=== PATIENT | male | born 1960 | race African-American/Black ===

== ENCOUNTER 2017-02-08 10:11 | Inpatient (IN) | payer OTHER ==
[2017-02-08 11:41] VITALS: BMI 25.0
--- NOTE | 2017-02-08 14:32 | HP ---
CIWA Score - CIWA Score Nausea/Vomitin-No Nausea/No Vomiting Muscle Tremors: 4-Moderate,w/Arms Extend Anxiety: 4-Mod. Anxious/Guarded Agitation: 4-Moderately Restless Paroxysmal Sweats: 3 Orientation: 0-Oriented Tacttile Disturbances: 0-None Auditory Disturbances: 0-None Visual Disturbances: 0-None Headache: 0-None Present CIWA-Ar Total Score: 15 Admission ROS BHS - HPI Chief Complaint: I am here to detox off the alcohol. Allergies/Adverse Reactions: Allergies Allergy/AdvReac Type Severity Reaction Status Date / Time No Known Drug Allergies Allergy Verified 02/08/17 11:56 honey AdvReac Mild Itching Verified 02/08/17 11:56 History of Present Illness: pt is a 57yr old male with a history of alcohol dependence seeking detox for treatment. pt is also on a mmtp [place] mmtp, recieved 140mg, last dosed today. dose was verified. Exam Limitations: No Limitations - Ebola screening Have you traveled outside of the country in the last 21 days: No Have you had contact with anyone from an Ebola affected area: No Have you been sick,other than usual withdrawal symptoms: No Do you have a fever: No - Review of Systems Constitutional: Chills, Diaphoresis, Changes in sleep EENT: reports: No Symptoms Reported Respiratory: reports: No Symptoms reported Cardiac: reports: No Symptoms Reported GI: reports: Poor Appetite, Poor Fluid Intake : reports: No Symptoms Reported Musculoskeletal: reports: Back Pain Integumentary: reports: Flushing, Sweating Neuro: reports: Headache, Tremors Endocrine: reports: Excessive Sweating, Flushing, Intolerance to Cold, Intolerance to Heat Hematology: reports: No Symptoms Reported Psychiatric: reports: Judgement Intact, Mood/Affect Appropiate, Orientated x3, Agitated, Anxious Other Systems: Reviewed and Negative Patient History - Patient Medical History Hx Anemia: No Hx Asthma: No Hx Chronic Obstructive Pulmonary Disease (COPD): No Hx Cancer: No Hx Cardiac Disorders: No Hx Congestive Heart Failure: No Hx Hypertension: No Hx Hypercholesterolemia: No Hx Pacemaker: No HX Cerebrovascular Accident: No Hx Seizures: No Hx Dementia: No Hx Diabetes: No Hx Gastrointestinal Disorders: No Hx Liver Disease: No Hx Genitourinary Disorders: No Hx Sexually Transmitted Disorders: No Hx Renal Disease (ESRD): No Hx Thyroid Disease: No Hx Human Immunodeficiency Virus (HIV): No (LAST 2015 NEGATIVE) Hx Hepatitis C: No (LAST TESTED: 2014: NEGATIVE.) Hx Depression: Yes Hx Suicide Attempt: No Hx Bipolar Disorder: No Hx Schizophrenia: No - Patient Surgical History Past Surgical History: Yes Hx Neurologic Surgery: No Hx Cataract Extraction: No Hx Cardiac Surgery: No Hx Lung Surgery: No Hx Breast Surgery: No Hx Breast Biopsy: No Hx Abdominal Surgery: Yes (UMBILICAL HERNIA REPAIR 10 YRS. AGO) Hx Appendectomy: No Hx Cholecystectomy: No Hx Genitourinary Surgery: No Hx Section: No Hx Orthopedic Surgery: No Anesthesia Reaction: No - PPD History Previous Implant?: Yes Documented Results: Negative w/o proof Implanted On Prior R Admission?: Yes PPD to be Administered?: Yes - Reproductive History Patient is a Female of Child Bearing Age (11 -55 yrs old): No - Smoking Cessation Smoking history: Current every day smoker Have you smoked in the past 12 months: Yes Aproximately how many cigarettes per day: 3 Cigars Per Day: 0 Hx Chewing Tobacco Use: No Initiated information on smoking cessation: Yes 'Breaking Loose' booklet given: 02/08/17 - Substance & Tx. History Hx Alcohol Use: Yes Hx Substance Use: No Substance Use Type: Alcohol Hx Substance Use Treatment: Yes (last detox 11/2015) - Substances Abused Alcohol-sera Route: Oral Frequency: Daily Amount used: 1 pt. Age of first use: 19 Date of Last Use: 02/08/17 Family Disease History - Family Disease History Family Disease History: Diabetes: Grandparent, Father (HTN; Prostate disorder.) , Mother (HTN), Brother, Heart Disease: Father, Mother, Other: Father, Sister ( Uterine fibroids.) Admission Physical Exam S - Vital Signs Vital Signs: Vital Signs - 24 hr 02/08/17 11:39 Temperature 98.1 F Pulse Rate 115 H Respiratory 20 Rate Blood Pressure 128/78 - Physical General Appearance: Yes: Appropriately Dressed, Moderate Distress, Tremorous, Irritable, Sweating, Anxious HEENTM: Yes: Hearing grossly Normal, Normal Voice Respiratory: Yes: Lungs Clear, Normal Breath Sounds, No Respiratory Distress Neck: Yes: No masses,lesions,Nodules Breast: Yes: Within Normal Limits Cardiology: Yes: Regular Rhythm, Regular Rate, S1, S2 Abdominal: Yes: Normal Bowel Sounds, Non Tender, Soft Genitourinary: Yes: Within Normal Limits Back: Yes: Normal Inspection Musculoskeletal: Yes: full range of Motion, Back pain Extremities: Yes: Normal Capillary Refill, Normal Inspection, Non-Tender, Tremors Neurological: Yes: Fully Oriented, Alert, Normal Response Integumentary: Yes: Normal Color, Diaphoresis Lymphatic: Yes: Within Normal Limits - Diagnostic (1) Alcohol dependence with uncomplicated withdrawal Current Visit: Yes Status: Chronic (2) HTN (hypertension) Current Visit: Yes Status: Chronic Qualifiers: Hypertension type: essential hypertension (3) Methadone maintenance therapy patient Current Visit: Yes Status: Chronic Comment: dose has been verified. (4) Nicotine dependence Current Visit: No Status: Chronic Qualifiers: Nicotine product type: cigarettes Substance use status: uncomplicated Qualified Code(s): F17.210 - Nicotine dependence, cigarettes, uncomplicated Cleared for Admission [facility] - Detox or Rehab [facility] Level of Care: Medically Managed Detox Regimen/Protocol: Librium [facility] Breath Alcohol Content Breath Alcohol Content: 0.120 Urine Drug Screen - Results Drug Screen Negative: No Urine Drug Screen Results: MTD-Methadone, TCA-Tricyclic Antidepress
[2017-02-08] MEDS ORDERED: P-EPHED 60MG/TRIPROLIDI 2.5MG TABLET PO PRN (14:33)
[2017-02-08] MEDS ORDERED: ACETAMINOPHEN 325 MG TABLET (FP) PO PRN (14:33)
[2017-02-08] MEDS ORDERED: chlordiazePOXIDE HCL 25 MG CAPSULE PO PRN (14:33)
[2017-02-08] MEDS ORDERED: guaiFENesin/D-METHORPHAN HB 10 ML UNIT-DOSE CUPS PO PRN (14:33)
[2017-02-08] MEDS ORDERED: MENTHOL/PHENOL 1 EACH UD MM PRN (14:33)
[2017-02-08] MEDS ORDERED: IBUPROFEN 400 MG TABLET (FP) PO PRN (14:33)
[2017-02-08] MEDS ORDERED: LOPERAMIDE HCL 2 MG CAPSULE PO PRN (14:33)
[2017-02-08] MEDS ORDERED: MAG HYDROX/AL HYDROX/SIMETH 30 ML UNIT-DOSE CUP PO PRN (14:33)
[2017-02-08] MEDS ORDERED: MAGNESIUM HYDROX 2400MG/30ML ORAL SUSPENSION 30 ML CUP PO PRN (14:33)
[2017-02-08] MEDS ORDERED: NICOTINE POLACRILEX 2 MG GUM BUC PRN (14:33)
[2017-02-08] MEDS ORDERED: MAGNESIUM CITRATE 300 ML BOTTLE PO PRN (14:33)
[2017-02-08] MEDS ORDERED: chlordiazePOXIDE HCL 25 MG CAPSULE PO ONE (15:04)
[2017-02-08] MEDS: hydrOXYzine PAMOATE 50 MG CAPSULE (FP) PO PRN ×2 (16:16→22:12)
--- NOTE | 2017-02-08 16:38 | PN ---
BHS Progress Note Note: RECEIVED NURSE CALL THAT THE PATIENT HAS BP 159/98 STRONG RECOMMEND INITIATING LIBRIUM DETOX TREATMENT IMMEDIATELY REPEAT BP TWO HOURS AFTER LIBRIUM ADMINISTRATION
[2017-02-08] MEDS: chlordiazePOXIDE HCL 25 MG CAPSULE PO SCH ×2 (17:31→22:12)
[2017-02-08] MEDS: THIAMINE HCL 100 MG TABLET (FP) PO SCH (22:12)
[2017-02-08 22:15] LABS: URINE APPEARANCE CLEAR; URINE BILIRUBIN NEGATIVE (NEGATIVE); URINE BLOOD NEGATIVE (NEGATIVE); URINE COLOR STRAW; URINE GLUCOSE (UA) NEGATIVE (NEGATIVE); URINE KETONE NEGATIVE (NEGATIVE); URINE NITRITE NEGATIVE (NEGATIVE); URINE PROTEIN NEGATIVE (NEGATIVE); URINE UROBILINOGEN NEGATIVE mg/dL (0.2-1.0)
[2017-02-09] MEDS ORDERED: METHADONE HCL 40 MG DISPERSABLE TABLET ONE (04:46)
[2017-02-09] MEDS ORDERED: METHADONE HCL 10 MG TABLET ONE (04:47)
[2017-02-09] MEDS: METHADONE 120 MG, METHADONE 20 MG PO SCH (05:08)
[2017-02-09] MEDS ORDERED: METHADONE HCL PO SCH (06:00)
[2017-02-09] MEDS: chlordiazePOXIDE HCL 25 MG CAPSULE PO SCH ×4 (06:09→22:29)
[2017-02-09 09:48] LABS: MCH 29.4 pg (25.7-33.7); MCHC 33.7 g/dl (32.0-35.9); MEAN CELL VOLUME 87.3 fl (80-96); MEAN PLT VOLUME 9.4 fl (7.5-11.1); PLATELET COUNT 84 K/MM3 (134-434); RDW 14.7 % (11.9-15.9); WHITE BLOOD COUNT 5.3 K/mm3 (4.0-10.0)
--- NOTE | 2017-02-09 10:01 | PN ---
S CIWA - CIWA Score Nausea/Vomitin-No Nausea/No Vomiting Muscle Tremors: 4-Moderate,w/Arms Extend Anxiety: 3 Agitation: 3 Paroxysmal Sweats: 3 Orientation: 0-Oriented Tacttile Disturbances: 0-None Auditory Disturbances: 0-None Visual Disturbances: 0-None Headache: 1-Very Mild CIWA-Ar Total Score: 14 S Progress Note (SOAP) Subjective: sweats shakes interrupted sleep body aches i need ensure Objective: 02/09/17 10:01 Vital Signs Temperature 97.0 F L 02/09/17 06:00 Pulse Rate 72 02/09/17 06:00 Respiratory Rate 18 02/09/17 06:00 Blood Pressure 142/96 02/09/17 06:00 O2 Sat by Pulse Oximetry (%) Laboratory Tests 02/08/17 02/09/17 21:50 06:05 WBC 5.3 RBC 4.26 Hgb 12.5 Hct 37.2 MCV 87.3 MCH 29.4 MCHC 33.7 RDW 14.7 Plt Count 84 L MPV 9.4 Urine Color Straw Urine Appearance Clear Urine pH 6.0 Ur Specific [employer] [employer] 1.004 Urine Protein Negative Urine Glucose (UA) Negative Urine Ketones Negative Urine Blood Negative Urine Nitrite Negative Urine Bilirubin Negative Urine Urobilinogen Negative labs pending [id number] ambulating no acute distress Assessment: 02/09/17 10:01 withdrawal sx Plan: continue detox increase fluids ensure bid labs pending
[2017-02-09] MEDS: amLODIPine BESYLATE 10 MG TABLET (FP) PO SCH (10:16)
[2017-02-09] MEDS: PRENATAL VITAMINS W/ FOLIC ACID TABLET (FP) PO SCH (10:16)
[2017-02-09] MEDS: NICOTINE 7 MG/24 HOURS TOPICAL PATCH TD SCH (10:18)
[2017-02-09 11:09] LABS: ALBUMIN 3.8 g/dl (3.4-5.0); ANION GAP 9 (8-16); CALCIUM 7.9 mg/dL (8.5-10.1); CO2 26 mmol/L (21-32); GLUCOSE,RANDOM 111 mg/dL (74-106)
[2017-02-09 11:13] LABS: ALK PHOS 98 U/L (45-117); BILIRUBIN,TOTAL 0.5 mg/dL (0.2-1.0); SGOT/AST 27 U/L (15-37); SGPT/ALT 39 U/L (12-78); TOT PROT 7.1 g/dl (6.4-8.2)
[2017-02-09 11:28] LABS: URINE LEUK ESTERASE Negative (NEGATIVE)
--- NOTE | 2017-02-09 12:00 | EKG ---
Test Reason : Blood Pressure : / mmHG Vent. Rate : 119 BPM Atrial Rate : 119 BPM P-R Int : 178 ms QRS Dur : 082 ms QT Int : 306 ms P-R-T Axes : 084 075 045 degrees QTc Int : 430 ms SINUS TACHYCARDIA BIATRIAL ENLARGEMENT LEFT VENTRICULAR HYPERTROPHY NONSPECIFIC ST ABNORMALITY NO PREVIOUS ECGS AVAILABLE Confirmed by LEELEE RODRIGUEZ, AMARI ([id number]) on 02/09/2017 11:59:53 AM Referred By: MARCELINA GUTIERREZ Confirmed By:AMARI MCKOY MD
[2017-02-09] MEDS: CARBAMIDE PEROXIDE 6.5% OTIC 15 ML BOTTLE AU SCH ×2 (13:36→22:30)
--- NOTE | 2017-02-09 16:24 | CONSULT ---
[facility] Psychiatric Consult - Data Date of interview: 02/09/17 Admission source: [facility] Identifying data: One of multiple admissions to [facility] for this 57 y/o AA male seeking detox treatment on for alcohol dependence.Patient is single ,a father of one,domiciled,unemployed and supported on [facility] benefits. Substance Abuse History: Mr Fraire admits to active use of alcohol.Smoking history: Current every day smoker. Have you smoked in the past 12 months: Yes. Aproximately how many cigarettes per day: 3. Cigars Per Day: 0. Hx Chewing Tobacco Use: No. Initiated information on smoking cessation: Yes. 'Breaking Loose' booklet given: 02/08/17. - Substance & Tx. History. Hx Alcohol Use: Yes. Hx Substance Use: No. Substance Use Type: Alcohol. Hx Substance Use Treatment: Yes (last detox 11/2015). - Substances Abused. Alcohol-sera. Route: Oral. Frequency: Daily. Amount used: 1 pt. Age of first use: 19. Date of Last Use: 02/08/17 Medical History: Hypertension,pancreatitis and past history of umbilical herniorraphy. Psychiatric History: No reported history of previous psychiatric hospitalizations.Mr Fraire is currrently on methadone maintenance (140 mg/day) at the [facility] MMTP program.Sees a psychiatrist at the [facility] in [place], [place] for medication management : zoloft 50 mg/day + seroquel 200 mg/day (50 mg po 150 mg po hs).Diagnosed with MDD.Patient denies history of suicide attempts. Physical/Sexual Abuse/Trauma History: Patient denies denies history of abuse. Additional Comment: Urine Drug Screen Results: MTD-Methadone, TCA-Tricyclic Antidepressant.Noted. Mental Status Exam - Mental Status Exam Alert and Oriented to: Time, Place, Person Cognitive Function: Good Patient Appearance: Well Groomed Mood: Hopeful, Euthymic Affect: Appropriate, Normal Range Patient Behavior: Appropriate, Cooperative Speech Pattern: Clear Voice Loudness: Normal Thought Process: Intact, Goal Oriented Thought Disorder: Not Present Hallucinations: Denies Suicidal Ideation: Denies Homicidal Ideation: Denies Insight/Judgement: Poor Sleep: Poorly, Difficulty falling asleep Appetite: Good Muscle strength/Tone: Normal Gait/Station: Normal Psychiatric Findings - Problem List ([place] 1, 2,3) (1) Alcohol dependence with uncomplicated withdrawal Current Visit: Yes Status: Acute (2) Opioid dependence on agonist therapy Current Visit: Yes Status: Acute (3) Nicotine dependence Current Visit: Yes Status: Acute Qualifiers: Nicotine product type: cigarettes Substance use status: uncomplicated Qualified Code(s): F17.210 - Nicotine dependence, cigarettes, uncomplicated (4) Substance induced mood disorder Current Visit: Yes Status: Acute (5) MDD (major depressive disorder) Current Visit: Yes Status: Chronic (6) Insomnia Current Visit: Yes Status: Acute - Initial Treatment Plan Initial Treatment Plan: Psychoeducation.Sleep hygiene.Detoxification in progress.Medications : seroquel 50 mg po am/150 mg po hs + zoloft 50 mg po daily.Side effecst/benefits discussed with the patient.He agrees with this careplan.Observation.
[2017-02-09] MEDS: QUEtiapine FUMARATE 50 MG TABLET PO SCH ×2 (17:13→22:29)
[2017-02-09] MEDS: THIAMINE HCL 100 MG TABLET (FP) PO SCH (22:29)
[2017-02-10] MEDS: hydrOXYzine PAMOATE 50 MG CAPSULE (FP) PO PRN (00:25)
[2017-02-10] MEDS ORDERED: METHADONE HCL 10 MG TABLET ONE (04:41)
[2017-02-10] MEDS ORDERED: METHADONE HCL 40 MG DISPERSABLE TABLET ONE (04:41)
[2017-02-10] MEDS: METHADONE 120 MG, METHADONE 20 MG PO SCH (05:10)
[2017-02-10] MEDS: chlordiazePOXIDE HCL 25 MG CAPSULE PO SCH ×2 (05:10→10:13)
[2017-02-10] MEDS: CARBAMIDE PEROXIDE 6.5% OTIC 15 ML BOTTLE AU SCH ×2 (10:12→22:11)
[2017-02-10] MEDS: amLODIPine BESYLATE 10 MG TABLET (FP) PO SCH (10:13)
[2017-02-10] MEDS: QUEtiapine FUMARATE 50 MG TABLET PO SCH ×2 (10:13→22:11)
[2017-02-10] MEDS: PRENATAL VITAMINS W/ FOLIC ACID TABLET (FP) PO SCH (10:13)
[2017-02-10] MEDS: NICOTINE 7 MG/24 HOURS TOPICAL PATCH TD SCH (10:14)
[2017-02-10] MEDS: SERTRALINE HCL 50 MG TABLET (FP) PO SCH (10:14)
--- NOTE | 2017-02-10 13:28 | PN ---
S CIWA - CIWA Score Nausea/Vomitin Muscle Tremors: 3 Anxiety: 3 Agitation: 3 Paroxysmal Sweats: 1-Minimal Palms Moist Orientation: 0-Oriented Tacttile Disturbances: 1-Very Mild Itch/Numbness Auditory Disturbances: 1-Very Mild Visual Disturbances: 0-None Headache: 2-Mild CIWA-Ar Total Score: 17 BHS Progress Note (SOAP) Subjective: alert,irritable,anxious,interrupted sleep,tremor Objective: 02/10/17 13:26 Vital Signs Temperature 96.9 F L 02/10/17 10:33 Pulse Rate 89 02/10/17 10:33 Respiratory Rate 20 02/10/17 10:33 Blood Pressure 128/78 02/10/17 10:33 O2 Sat by Pulse Oximetry (%) Laboratory Last Values WBC 5.3 K/mm3 (4.0-10.0) 02/09/17 06:05 RBC 4.26 M/mm3 (4.00-5.60) 02/09/17 06:05 Hgb 12.5 GM/dL (11.7-16.9) 02/09/17 06:05 Hct 37.2 % (35.4-49) 02/09/17 06:05 MCV 87.3 fl (80-96) 02/09/17 06:05 MCH 29.4 pg (25.7-33.7) 02/09/17 06:05 MCHC 33.7 g/dl (32.0-35.9) 02/09/17 06:05 RDW 14.7 % (11.9-15.9) 02/09/17 06:05 Plt Count 84 K/MM3 (134-434) L 02/09/17 06:05 MPV 9.4 fl (7.5-11.1) 02/09/17 06:05 Sodium 141 mmol/L (136-145) 02/09/17 06:05 Potassium 4.2 mmol/L (3.5-5.1) 02/09/17 06:05 Chloride 106 mmol/L (98-107) 02/09/17 06:05 Carbon Dioxide 26 mmol/L (21-32) 02/09/17 06:05 Anion Gap 9 (8-16) 02/09/17 06:05 BUN 11 mg/dL (7-18) D 02/09/17 06:05 Creatinine 1.0 mg/dL (0.7-1.3) 02/09/17 06:05 Creat Clearance w eGFR > 60 (>60) 02/09/17 06:05 Random Glucose 111 mg/dL (74-106) H 02/09/17 06:05 Calcium 7.9 mg/dL (8.5-10.1) L 02/09/17 06:05 Total Bilirubin 0.5 mg/dL (0.2-1.0) D 02/09/17 06:05 AST 27 U/L (15-37) 02/09/17 06:05 ALT 39 U/L (12-78) 02/09/17 06:05 Alkaline Phosphatase 98 U/L (45-117) D 02/09/17 06:05 Total Protein 7.1 g/dl (6.4-8.2) 02/09/17 06:05 Albumin 3.8 g/dl (3.4-5.0) 02/09/17 06:05 Urine Color Straw 02/08/17 21:50 Urine Appearance Clear 02/08/17 21:50 Urine pH 6.0 (5.0-8.0) 02/08/17 21:50 Ur Specific [place] 1.004 (1.001-1.035) 02/08/17 21:50 Urine Protein Negative (NEGATIVE) 02/08/17 21:50 Urine Glucose (UA) Negative (NEGATIVE) 02/08/17 21:50 Urine Ketones Negative (NEGATIVE) 02/08/17 21:50 Urine Blood Negative (NEGATIVE) 02/08/17 21:50 Urine Nitrite Negative (NEGATIVE) 02/08/17 21:50 Urine Bilirubin Negative (NEGATIVE) 02/08/17 21:50 Urine Urobilinogen Negative mg/dL (0.2-1.0) 02/08/17 21:50 Ur Leukocyte Esterase Negative (NEGATIVE) 02/08/17 21:50 RPR Titer Nonreactive (NONREACTIVE) 02/09/17 06:05 Assessment: 02/10/17 13:27 withdrawal symptom Plan: continue detox,initial glucose 111,fasting glucose in am
[2017-02-10] MEDS: chlordiazePOXIDE 5 MG CAPSULE PO SCH ×2 (17:21→22:11)
[2017-02-10] MEDS: THIAMINE HCL 100 MG TABLET (FP) PO SCH (22:11)
[2017-02-11] MEDS ORDERED: METHADONE HCL 40 MG DISPERSABLE TABLET ONE (04:33)
[2017-02-11] MEDS ORDERED: METHADONE HCL 10 MG TABLET ONE (04:33)
[2017-02-11] MEDS: METHADONE 120 MG, METHADONE 20 MG PO SCH (05:32)
[2017-02-11] MEDS: chlordiazePOXIDE 5 MG CAPSULE PO SCH ×2 (05:32→10:12)
[2017-02-11] MEDS: QUEtiapine FUMARATE 50 MG TABLET PO SCH ×2 (10:11→22:07)
[2017-02-11] MEDS: SERTRALINE HCL 50 MG TABLET (FP) PO SCH (10:11)
[2017-02-11] MEDS: CARBAMIDE PEROXIDE 6.5% OTIC 15 ML BOTTLE AU SCH ×2 (10:11→22:07)
[2017-02-11] MEDS: PRENATAL VITAMINS W/ FOLIC ACID TABLET (FP) PO SCH (10:11)
[2017-02-11] MEDS: NICOTINE 7 MG/24 HOURS TOPICAL PATCH TD SCH (10:11)
[2017-02-11] MEDS: amLODIPine BESYLATE 10 MG TABLET (FP) PO SCH (10:11)
--- NOTE | 2017-02-11 10:34 | PN ---
S Progress Note (SOAP) Subjective: alert,irritable,anxious,interrupted sleep Objective: 02/11/17 10:33 Vital Signs Temperature 97.5 F L 02/11/17 10:26 Pulse Rate 87 02/11/17 10:26 Respiratory Rate 18 02/11/17 10:26 Blood Pressure 117/75 02/11/17 10:26 O2 Sat by Pulse Oximetry (%) Assessment: 02/11/17 10:33 withdrawal symptom Plan: continue detox,discharge in am
[2017-02-11] MEDS: chlordiazePOXIDE HCL 10 MG CAPSULE PO SCH ×2 (17:56→22:07)
[2017-02-11] MEDS: hydrOXYzine PAMOATE 50 MG CAPSULE (FP) PO PRN (20:26)
[2017-02-11] MEDS: THIAMINE HCL 100 MG TABLET (FP) PO SCH (22:07)
[2017-02-12] MEDS ORDERED: METHADONE HCL 40 MG DISPERSABLE TABLET ONE (04:56)
[2017-02-12] MEDS ORDERED: METHADONE HCL 10 MG TABLET ONE (04:57)
[2017-02-12] MEDS: METHADONE 120 MG, METHADONE 20 MG PO SCH (05:36)
[2017-02-12] MEDS: chlordiazePOXIDE HCL 10 MG CAPSULE PO SCH ×2 (05:36→11:08)
--- NOTE | 2017-02-12 08:34 | DS ---
[facility] Detox Discharge Summary Admission Date: 02/08/17 Discharge Date: 02/12/17 - History Present History: Alcohol Dependence, MMTP - Physical Exam Results Vital Signs: Vital Signs Temperature 97.3 F L 02/12/17 06:07 Pulse Rate 79 02/12/17 06:07 Respiratory Rate 18 02/12/17 06:07 Blood Pressure 110/50 02/12/17 06:07 O2 Sat by Pulse Oximetry (%) - Treatment Hospital Course: Detox Protocol Followed, Detoxed Safely, Responded well, Discharged Condition Good, Rehab Referral Accepted - Medication Discharge Medications: Ambulatory Orders Methadone HCl 140 mg PO DAILY 12/25/15 Sertraline HCl [Zoloft -] 50 mg PO DAILY #30 tablet 02/10/16 Amlodipine Besylate [Norvasc -] 10 mg PO DAILY #30 tablet 02/13/16 Quetiapine Fumarate [Seroquel -] 200 mg PO HS 02/08/17 Quetiapine Fumarate [Seroquel -] 200 mg PO HS #30 tab 02/09/17 Sertraline HCl [Zoloft -] 50 mg PO DAILY #30 tablet 02/09/17 - Diagnosis (1) Alcohol dependence with uncomplicated withdrawal Current Visit: Yes Status: Chronic (2) HTN (hypertension) Current Visit: Yes Status: Chronic Qualifiers: Hypertension type: essential hypertension Qualified Code(s): I10 - Essential (primary) hypertension (3) Methadone maintenance therapy patient Current Visit: Yes Status: Chronic (4) Nicotine dependence Current Visit: Yes Status: Chronic Qualifiers: Nicotine product type: cigarettes Substance use status: uncomplicated Qualified Code(s): F17.210 - Nicotine dependence, cigarettes, uncomplicated - AMA Did Patient Leave Against Medical Advice: No
[2017-02-12 09:42] VITALS: BP 124/65; PULSE 93; TEMP 98.2
[2017-02-12] MEDS: PRENATAL VITAMINS W/ FOLIC ACID TABLET (FP) PO SCH (11:07)
[2017-02-12] MEDS: QUEtiapine FUMARATE 50 MG TABLET PO SCH (11:07)
[2017-02-12] MEDS: NICOTINE 7 MG/24 HOURS TOPICAL PATCH TD SCH (11:07)
[2017-02-12] MEDS: CARBAMIDE PEROXIDE 6.5% OTIC 15 ML BOTTLE AU SCH (11:07)
[2017-02-12] MEDS: amLODIPine BESYLATE 10 MG TABLET (FP) PO SCH (11:07)
[2017-02-12] MEDS: SERTRALINE HCL 50 MG TABLET (FP) PO SCH (11:08)
== END 2017-02-12 09:45 | disposition home or self-care (01) | DRG 773 ==
LOC: YASAS 10:11 → Y6N 14:59
PROVIDERS: ADMIT Internal Medicine; ATTEND Internal Medicine
PROC: HZ2ZZZZ Detoxification Services for Substance Abuse Treatment (ICD-10-PCS; principal; 2017-02-08)
DX: F10.230 Alcohol dependence with withdrawal, uncomplicated (principal); F11.20 Opioid dependence, uncomplicated; F17.210 Nicotine dependence, cigarettes, uncomplicated; F33.9 Major depressive disorder, recurrent, unspecified; F19.24 Other psychoactive substance dependence with psychoactive substance-induced mood disorder; I10 Essential (primary) hypertension; G47.00 Insomnia, unspecified; Z91.018 Allergy to other foods
CPT/HCPCS: 36415; 80053; 81003; 82947; 85027; 86593; 93005; 93010

== ENCOUNTER 2017-02-12 11:12 | Inpatient (IN) | payer OTHER ==
[2017-02-12 12:21] VITALS: BMI 26.2
--- NOTE | 2017-02-12 14:10 | HP ---
ELIAN RODRIGUEZ Rehab Assess/Revision - Admission History Admitted to Rehab from: [facility] [place] (COMPLETED DETOX 02/08/17 TO 02/12/17) Date of Admission to Rehab: 02/12/17 - Vital signs Vital Signs: Vital Signs Period Temp Pulse Resp BP Sys/Freeman Pulse Ox Last 24 Hr 98.0 F 98 18 106/60 - Findings Detox History & Physical reviewed: Yes Concur with findings: Yes Comments/Additional Findings: PT RETURNED TO FACILITY TO FOLLOW UP WITH AFTERCARE REOMMENDATION. ALERT O X 3. NAD. VSS. Inpatient Rehab Admission - Initial Determination Are CD services needed?: Yes Free of communicable disease: Yes Not in need of hospitalization: Yes - Rehab Admission Criteria Patient is meeting Inpatient Rehab admission criteria:: Yes
[2017-02-12] MEDS ORDERED: P-EPHED 60MG/TRIPROLIDI 2.5MG TABLET PO PRN (14:12)
[2017-02-12] MEDS ORDERED: NICOTINE POLACRILEX 2 MG GUM BUC PRN (14:12)
[2017-02-12] MEDS ORDERED: ACETAMINOPHEN 325 MG TABLET (FP) PO PRN (14:12)
[2017-02-12] MEDS ORDERED: MENTHOL/PHENOL 1 EACH UD MM PRN (14:12)
[2017-02-12] MEDS ORDERED: LOPERAMIDE HCL 2 MG CAPSULE PO PRN (14:12)
[2017-02-12] MEDS ORDERED: guaiFENesin/D-METHORPHAN HB 10 ML UNIT-DOSE CUPS PO PRN (14:12)
[2017-02-12 17:33] LABS: URINE APPEARANCE SLCLOUDY; URINE BILIRUBIN NEGATIVE (NEGATIVE); URINE BLOOD NEGATIVE (NEGATIVE); URINE COLOR AMBER; URINE GLUCOSE (UA) NEGATIVE (NEGATIVE); URINE KETONE NEGATIVE (NEGATIVE); URINE NITRITE NEGATIVE (NEGATIVE); URINE PROTEIN NEGATIVE (NEGATIVE); URINE UROBILINOGEN NEGATIVE mg/dL (0.2-1.0)
[2017-02-12] MEDS: NICOTINE 14 MG/24 HOURS TOPICAL PATCH TD SCH (18:01)
[2017-02-12 19:31] LABS: URINE LEUK ESTERASE Negative (NEGATIVE)
[2017-02-12] MEDS: QUEtiapine FUMARATE 200 MG TABLET PO SCH ×2 (21:30→21:31)
[2017-02-12] MEDS: THIAMINE HCL 100 MG TABLET (FP) PO SCH (21:30)
[2017-02-13] MEDS ORDERED: METHADONE HCL 10 MG TABLET PO SCH (06:00)
[2017-02-13] MEDS ORDERED: METHADONE HCL 40 MG DISPERSABLE TABLET ONE (06:14)
[2017-02-13] MEDS ORDERED: METHADONE HCL 10 MG TABLET ONE (06:14)
[2017-02-13] MEDS: METHADONE 120 MG, METHADONE 20 MG PO SCH (06:16)
[2017-02-13] MEDS: NICOTINE 14 MG/24 HOURS TOPICAL PATCH TD SCH (09:52)
[2017-02-13] MEDS: SERTRALINE HCL 50 MG TABLET (FP) PO SCH (09:52)
[2017-02-13] MEDS: amLODIPine BESYLATE 10 MG TABLET (FP) PO SCH (09:52)
[2017-02-13] MEDS: PRENATAL VITAMINS W/ FOLIC ACID TABLET (FP) PO SCH (09:52)
--- NOTE | 2017-02-13 11:38 | HP ---
Psychiatrist Admission - Data Date of interview: 02/13/17 Admission source: 6N Identifying data: This is one of the several 5n inpatient rehabilitation admissions for this 57 year old single father of one, who is unemployed and suppoted on [employer] benefits, he is domiciled residing with his g/f in [place]. Medical History: Hypertension,pancreatitis and past history of umbilical herniorraphy, on methadone maintenance (140 mg/day) at the [facility] program.Smokes 3 cigarettes a day. Psychiatric History: Patient reports history of MDD, no previous psychiatric hospitalizations, he sees a psychiatrist at the [facility] in [place], [place] for medication management, he currently on zoloft 50 mg daily and seroquel 200 mg hs. Seen by while in detox and continued medications. Patient denies history of suicide attempts. Physical/Sexual Abuse/Trauma History: Patient denies history of sexual, physical and verbal abuse. Vital Signs: Vital Signs - 24 hr 02/12/17 02/12/17 02/13/17 12:19 17:00 00:30 Temperature 98.0 F 98.4 F Pulse Rate 98 H 93 H Respiratory 18 18 18 Rate Blood Pressure 106/60 120/73 02/13/17 02/13/17 03:30 06:47 Temperature 97.8 F Pulse Rate 88 Respiratory 18 18 Rate Blood Pressure 123/74 Allergies/Adverse Reactions: Allergies Allergy/AdvReac Type Severity Reaction Status Date / Time No Known Drug Allergies Allergy Verified 02/12/17 14:37 honey AdvReac Mild Itching Verified 02/12/17 14:37 Date of last physical exam: 02/09/17 Concur with the findings of this exam: Yes - Substance Abuse/Tx History Hx Alcohol Use: Yes (1-3 pints of sera daily) Hx Substance Use: No Substance Use Type: Alcohol (started drinking at age of 19) Mental Status Exam - Mental Status Exam Alert and Oriented to: Time, Place, Person Cognitive Function: Good Patient Appearance: Well Groomed Mood: Hopeful Affect: Appropriate, Mood Congruent Patient Behavior: Appropriate, Cooperative Speech Pattern: Clear, Appropriate Voice Loudness: Normal Thought Process: Intact, Goal Oriented Thought Disorder: Not Present Hallucinations: Denies Suicidal Ideation: Denies Homicidal Ideation: Denies Insight/Judgement: Fair Sleep: Fair Appetite: Fair, Weight loss (lost 58 lbs over year) Muscle strength/Tone: Normal Gait/Station: Normal Psychiatric Findings - Problem List ([place] 1, 2,3) (1) Methadone maintenance therapy patient Current Visit: Yes Status: Chronic Comment: dose has been verified. (2) Nicotine dependence Current Visit: Yes Status: Chronic Qualifiers: Nicotine product type: cigarettes Substance use status: in withdrawal Qualified Code(s): F17.213 - Nicotine dependence, cigarettes, with withdrawal (3) Opioid dependence on agonist therapy Current Visit: No Status: Acute (4) MDD (major depressive disorder) Current Visit: No Status: Chronic - Initial Treatment Plan Initial Treatment Plan: will continue his current medications, monitor progress as needed.
[2017-02-13] MEDS: THIAMINE HCL 100 MG TABLET (FP) PO SCH (21:15)
[2017-02-13] MEDS: QUEtiapine FUMARATE 200 MG TABLET PO SCH (21:15)
[2017-02-14] MEDS ORDERED: METHADONE HCL 10 MG TABLET ONE (03:07)
[2017-02-14] MEDS ORDERED: METHADONE HCL 40 MG DISPERSABLE TABLET ONE (03:07)
[2017-02-14] MEDS: METHADONE 120 MG, METHADONE 20 MG PO SCH (06:13)
[2017-02-14] MEDS: PRENATAL VITAMINS W/ FOLIC ACID TABLET (FP) PO SCH (09:56)
[2017-02-14] MEDS: NICOTINE 14 MG/24 HOURS TOPICAL PATCH TD SCH (09:56)
[2017-02-14] MEDS: SERTRALINE HCL 50 MG TABLET (FP) PO SCH (09:56)
[2017-02-14] MEDS: amLODIPine BESYLATE 10 MG TABLET (FP) PO SCH (09:56)
--- NOTE | 2017-02-14 15:28 | PN ---
S Progress Note (SOAP) Subjective: patient concerned about labwork results after group meeting, blood drawn yesterday Objective: 02/14/17 15:26 Vital Signs - 8 hr 02/14/17 02/14/17 07:39 10:00 Temperature 97.7 F Pulse Rate 85 90 Respiratory 16 Rate Blood Pressure 128/77 125/71 Laboratory Tests 02/12/17 15:30 Urine Color [place] Urine Appearance Slcloudy Urine pH 5.0 Ur Specific [place] 1.024 Urine Protein Negative Urine Glucose (UA) Negative Urine Ketones Negative Urine Blood Negative Urine Nitrite Negative Urine Bilirubin Negative Urine Urobilinogen Negative Ur Leukocyte Esterase Negative reveiwed labs low platelets Assessment: 02/14/17 15:27 no further treatment indicated most likely 2/2 bone marro suppression or liver effects of alcohol f/u with PCP after discharge for repeat labwork
[2017-02-14] MEDS: MAG HYDROX/AL HYDROX/SIMETH 30 ML UNIT-DOSE CUP PO PRN (16:59)
[2017-02-14] MEDS: CARBAMIDE PEROXIDE 6.5% OTIC 15 ML BOTTLE AU SCH ×2 (17:37→21:12)
[2017-02-14] MEDS: QUEtiapine FUMARATE 200 MG TABLET PO SCH (21:12)
[2017-02-14] MEDS: THIAMINE HCL 100 MG TABLET (FP) PO SCH (21:12)
[2017-02-15] MEDS ORDERED: METHADONE HCL 40 MG DISPERSABLE TABLET ONE ×2 (03:11→03:52)
[2017-02-15] MEDS ORDERED: METHADONE HCL 10 MG TABLET ONE (03:52)
[2017-02-15] MEDS: METHADONE 120 MG, METHADONE 20 MG PO SCH (06:19)
[2017-02-15] MEDS: NICOTINE 14 MG/24 HOURS TOPICAL PATCH TD SCH (10:05)
[2017-02-15] MEDS: SERTRALINE HCL 50 MG TABLET (FP) PO SCH (10:05)
[2017-02-15] MEDS: PRENATAL VITAMINS W/ FOLIC ACID TABLET (FP) PO SCH (10:05)
[2017-02-15] MEDS: amLODIPine BESYLATE 10 MG TABLET (FP) PO SCH (10:05)
[2017-02-15] MEDS: CARBAMIDE PEROXIDE 6.5% OTIC 15 ML BOTTLE AU SCH ×2 (10:05→21:17)
[2017-02-15] MEDS: QUEtiapine FUMARATE 200 MG TABLET PO SCH (21:17)
[2017-02-15] MEDS: THIAMINE HCL 100 MG TABLET (FP) PO SCH (21:17)
[2017-02-16] MEDS ORDERED: METHADONE HCL 40 MG DISPERSABLE TABLET ONE (03:09)
[2017-02-16] MEDS ORDERED: METHADONE HCL 10 MG TABLET ONE (03:09)
[2017-02-16] MEDS: METHADONE 120 MG, METHADONE 20 MG PO SCH (06:30)
[2017-02-16] MEDS: SERTRALINE HCL 50 MG TABLET (FP) PO SCH (09:26)
[2017-02-16] MEDS: PRENATAL VITAMINS W/ FOLIC ACID TABLET (FP) PO SCH (09:26)
[2017-02-16] MEDS: amLODIPine BESYLATE 10 MG TABLET (FP) PO SCH (09:26)
[2017-02-16] MEDS: NICOTINE 14 MG/24 HOURS TOPICAL PATCH TD SCH (09:27)
[2017-02-16] MEDS: MAG HYDROX/AL HYDROX/SIMETH 30 ML UNIT-DOSE CUP PO PRN (09:28)
[2017-02-16] MEDS: CARBAMIDE PEROXIDE 6.5% OTIC 15 ML BOTTLE AU SCH ×2 (09:28→21:16)
[2017-02-16] MEDS: MAGNESIUM HYDROX 2400MG/30ML ORAL SUSPENSION 30 ML CUP PO PRN (16:36)
[2017-02-16] MEDS: IBUPROFEN 400 MG TABLET (FP) PO PRN (19:20)
[2017-02-16] MEDS ORDERED: SIMETHICONE 80 MG TAB.CHEW (FP) PO PRN (20:59)
--- NOTE | 2017-02-16 21:04 | PN ---
[facility] Progress Note Note: Pt. is c/o of bloating and abdominal cramping. He also c/o of constipation. He reports has a history of GERD. MOM was administered at 2035 but client reports minimal relief achieved. Mylicon and Zantac prescribed. Will continue to monitor.
[2017-02-16] MEDS: QUEtiapine FUMARATE 200 MG TABLET PO SCH (21:16)
[2017-02-16] MEDS: THIAMINE HCL 100 MG TABLET (FP) PO SCH (21:16)
[2017-02-16] MEDS: RANITIDINE HCL 150 MG TABLET (FP) PO SCH ×2 (21:18→21:27)
[2017-02-16] MEDS: TOLNAFTATE 1% CREAM 15 GM TUBE TP SCH (21:18)
[2017-02-17] MEDS ORDERED: METHADONE HCL 40 MG DISPERSABLE TABLET ONE (03:39)
[2017-02-17] MEDS ORDERED: METHADONE HCL 10 MG TABLET ONE (03:39)
[2017-02-17] MEDS: METHADONE 120 MG, METHADONE 20 MG PO SCH (06:20)
--- NOTE | 2017-02-17 06:51 | PN ---
S Progress Note Note: persistent elevation of bgm last 242 ,on ensure, will place on no concentrated sweet,d/c ensure,fasting blood glucose,hb a1c, glucerna 1 can po bid, bgm monitoring
[2017-02-17] MEDS: amLODIPine BESYLATE 10 MG TABLET (FP) PO SCH (09:20)
[2017-02-17] MEDS: NICOTINE 14 MG/24 HOURS TOPICAL PATCH TD SCH (09:20)
[2017-02-17] MEDS: PRENATAL VITAMINS W/ FOLIC ACID TABLET (FP) PO SCH (09:20)
[2017-02-17] MEDS: SERTRALINE HCL 50 MG TABLET (FP) PO SCH (09:20)
[2017-02-17] MEDS: RANITIDINE HCL 150 MG TABLET (FP) PO SCH ×2 (09:20→21:15)
[2017-02-17] MEDS: CARBAMIDE PEROXIDE 6.5% OTIC 15 ML BOTTLE AU SCH ×2 (09:21→21:16)
[2017-02-17] MEDS: TOLNAFTATE 1% CREAM 15 GM TUBE TP SCH ×2 (09:21→21:15)
[2017-02-17] MEDS: MAGNESIUM CITRATE 300 ML BOTTLE PO PRN (17:39)
[2017-02-17] MEDS ORDERED: metFORMIN HCL 500 MG TABLET (FP) PO ONE (17:43)
--- NOTE | 2017-02-17 17:52 | PN ---
[facility] Progress Note Note: Abnormal FBS with normal HA1C Laboratory Tests 02/12/17 02/15/17 02/16/17 15:30 06:18 06:17 POC Glucometer 217 216 Fasting Glucose Hemoglobin A1c % Urine Color [place] Urine Appearance Slcloudy Urine pH 5.0 Ur Specific [place] 1.024 Urine Protein Negative Urine Glucose (UA) Negative Urine Ketones Negative Urine Blood Negative Urine Nitrite Negative Urine Bilirubin Negative Urine Urobilinogen Negative Ur Leukocyte Esterase Negative 02/17/17 02/17/17 02/17/17 06:22 07:40 07:40 POC Glucometer 242 Fasting Glucose 258 H D Hemoglobin A1c % 5.0 Urine Color Urine Appearance Urine pH Ur Specific [place] Urine Protein Urine Glucose (UA) Urine Ketones Urine Blood Urine Nitrite Urine Bilirubin Urine Urobilinogen Ur Leukocyte Esterase 02/17/17 16:42 POC Glucometer 250 Fasting Glucose Hemoglobin A1c % Urine Color Urine Appearance Urine pH Ur Specific [place] Urine Protein Urine Glucose (UA) Urine Ketones Urine Blood Urine Nitrite Urine Bilirubin Urine Urobilinogen Ur Leukocyte Esterase Start Metformin, Dietary consult
[2017-02-17] MEDS: INSULIN SLIDING SCALE (NOVOLOG) 1 VIAL SQ SCH ×2 (18:05→21:15)
[2017-02-17] MEDS ORDERED: INSULIN (NOVOLOG) ASPART 100 UNITS/ML 10ML VIAL ONE (18:07)
[2017-02-17] MEDS: THIAMINE HCL 100 MG TABLET (FP) PO SCH (21:15)
[2017-02-17] MEDS: QUEtiapine FUMARATE 200 MG TABLET PO SCH (21:15)
[2017-02-18] MEDS ORDERED: METHADONE HCL 10 MG TABLET ONE (03:36)
[2017-02-18] MEDS ORDERED: METHADONE HCL 40 MG DISPERSABLE TABLET ONE (03:36)
[2017-02-18] MEDS: METHADONE 120 MG, METHADONE 20 MG PO SCH (06:16)
[2017-02-18] MEDS: INSULIN SLIDING SCALE (NOVOLOG) 1 VIAL SQ SCH ×4 (06:16→21:25)
[2017-02-18] MEDS: metFORMIN HCL 500 MG TABLET (FP) PO SCH ×2 (06:16→16:41)
[2017-02-18] MEDS: RANITIDINE HCL 150 MG TABLET (FP) PO SCH ×2 (09:52→21:20)
[2017-02-18] MEDS: SERTRALINE HCL 50 MG TABLET (FP) PO SCH (09:52)
[2017-02-18] MEDS: DOCUSATE SODIUM 100 MG CAPSULE (FP) PO SCH ×2 (09:52→21:20)
[2017-02-18] MEDS: NICOTINE 14 MG/24 HOURS TOPICAL PATCH TD SCH (09:52)
[2017-02-18] MEDS: amLODIPine BESYLATE 10 MG TABLET (FP) PO SCH (09:52)
[2017-02-18] MEDS: PRENATAL VITAMINS W/ FOLIC ACID TABLET (FP) PO SCH (09:52)
[2017-02-18] MEDS: TOLNAFTATE 1% CREAM 15 GM TUBE TP SCH ×2 (09:53→21:21)
[2017-02-18] MEDS: CARBAMIDE PEROXIDE 6.5% OTIC 15 ML BOTTLE AU SCH ×2 (09:53→21:21)
[2017-02-18] MEDS ORDERED: INSULIN (NOVOLOG) ASPART 100 UNITS/ML 10ML VIAL ONE ×2 (12:08→21:26)
[2017-02-18] MEDS: QUEtiapine FUMARATE 200 MG TABLET PO SCH (21:20)
[2017-02-18] MEDS: THIAMINE HCL 100 MG TABLET (FP) PO SCH (21:20)
[2017-02-19] MEDS ORDERED: METHADONE 120 MG, METHADONE 20 MG PO SCH (06:00)
[2017-02-19] MEDS ORDERED: METHADONE HCL 10 MG TABLET ONE (06:17)
[2017-02-19] MEDS ORDERED: METHADONE HCL 40 MG DISPERSABLE TABLET ONE (06:18)
[2017-02-19] MEDS: METHADONE 120 MG, METHADONE 20 MG PO SCH (06:20)
[2017-02-19] MEDS: metFORMIN HCL 500 MG TABLET (FP) PO SCH ×2 (06:20→16:40)
[2017-02-19] MEDS: INSULIN SLIDING SCALE (NOVOLOG) 1 VIAL SQ SCH ×2 (06:27→12:08)
[2017-02-19] MEDS: SERTRALINE HCL 50 MG TABLET (FP) PO SCH (10:17)
[2017-02-19] MEDS: RANITIDINE HCL 150 MG TABLET (FP) PO SCH ×2 (10:17→21:29)
[2017-02-19] MEDS: amLODIPine BESYLATE 10 MG TABLET (FP) PO SCH (10:17)
[2017-02-19] MEDS: PRENATAL VITAMINS W/ FOLIC ACID TABLET (FP) PO SCH (10:17)
[2017-02-19] MEDS: NICOTINE 14 MG/24 HOURS TOPICAL PATCH TD SCH (10:17)
[2017-02-19] MEDS: DOCUSATE SODIUM 100 MG CAPSULE (FP) PO SCH ×2 (10:17→21:31)
[2017-02-19] MEDS: CARBAMIDE PEROXIDE 6.5% OTIC 15 ML BOTTLE AU SCH ×2 (10:18→21:29)
[2017-02-19] MEDS: TOLNAFTATE 1% CREAM 15 GM TUBE TP SCH ×2 (10:18→21:29)
[2017-02-19] MEDS ORDERED: INSULIN (NOVOLOG) ASPART 100 UNITS/ML 10ML VIAL ONE (12:03)
[2017-02-19] MEDS: THIAMINE HCL 100 MG TABLET (FP) PO SCH (21:29)
[2017-02-19] MEDS: QUEtiapine FUMARATE 200 MG TABLET PO SCH (21:29)
[2017-02-19] MEDS: SENNOSIDES 8.6MG TABLET (FP) PO SCH (21:30)
[2017-02-20] MEDS ORDERED: METHADONE HCL 40 MG DISPERSABLE TABLET ONE (03:12)
[2017-02-20] MEDS ORDERED: METHADONE HCL 10 MG TABLET ONE (03:12)
[2017-02-20] MEDS: metFORMIN HCL 500 MG TABLET (FP) PO SCH ×2 (06:19→17:07)
[2017-02-20] MEDS: METHADONE 120 MG, METHADONE 20 MG PO SCH (06:19)
[2017-02-20] MEDS: PRENATAL VITAMINS W/ FOLIC ACID TABLET (FP) PO SCH (10:15)
[2017-02-20] MEDS: TOLNAFTATE 1% CREAM 15 GM TUBE TP SCH ×2 (10:15→21:14)
[2017-02-20] MEDS: amLODIPine BESYLATE 10 MG TABLET (FP) PO SCH (10:15)
[2017-02-20] MEDS: RANITIDINE HCL 150 MG TABLET (FP) PO SCH ×2 (10:15→21:13)
[2017-02-20] MEDS: NICOTINE 14 MG/24 HOURS TOPICAL PATCH TD SCH (10:16)
[2017-02-20] MEDS: CARBAMIDE PEROXIDE 6.5% OTIC 15 ML BOTTLE AU SCH ×2 (10:16→21:13)
[2017-02-20] MEDS: SERTRALINE HCL 50 MG TABLET (FP) PO SCH (10:17)
[2017-02-20] MEDS: IBUPROFEN 400 MG TABLET (FP) PO PRN (13:34)
[2017-02-20] MEDS: DOCUSATE SODIUM 100 MG CAPSULE (FP) PO SCH (21:13)
[2017-02-20] MEDS: THIAMINE HCL 100 MG TABLET (FP) PO SCH (21:13)
[2017-02-20] MEDS: SENNOSIDES 8.6MG TABLET (FP) PO SCH (21:13)
[2017-02-20] MEDS: QUEtiapine FUMARATE 200 MG TABLET PO SCH (21:13)
[2017-02-21] MEDS ORDERED: METHADONE HCL 10 MG TABLET ONE (03:42)
[2017-02-21] MEDS ORDERED: METHADONE HCL 40 MG DISPERSABLE TABLET ONE (03:43)
[2017-02-21] MEDS: metFORMIN HCL 500 MG TABLET (FP) PO SCH ×2 (06:16→16:46)
[2017-02-21] MEDS: METHADONE 120 MG, METHADONE 20 MG PO SCH (06:16)
[2017-02-21] MEDS: PRENATAL VITAMINS W/ FOLIC ACID TABLET (FP) PO SCH (09:52)
[2017-02-21] MEDS: RANITIDINE HCL 150 MG TABLET (FP) PO SCH ×2 (09:53→21:19)
[2017-02-21] MEDS: SERTRALINE HCL 50 MG TABLET (FP) PO SCH (09:53)
[2017-02-21] MEDS: NICOTINE 14 MG/24 HOURS TOPICAL PATCH TD SCH (09:53)
[2017-02-21] MEDS: amLODIPine BESYLATE 10 MG TABLET (FP) PO SCH (09:53)
[2017-02-21] MEDS: IBUPROFEN 400 MG TABLET (FP) PO PRN ×2 (09:55→15:46)
[2017-02-21] MEDS: CARBAMIDE PEROXIDE 6.5% OTIC 15 ML BOTTLE AU SCH ×2 (09:55→21:19)
[2017-02-21] MEDS: TOLNAFTATE 1% CREAM 15 GM TUBE TP SCH ×2 (09:56→21:19)
--- NOTE | 2017-02-21 11:25 | PN ---
Psychiatric Progress Note Vital Signs: Vital Signs Period Temp Pulse Resp BP Sys/Freeman Pulse Ox Last 24 Hr 97.3 F 69 16-16 127/78 Date of Session: 02/21/17 Chief Complaint:: "I am anxious" HPI: Patient is addressing opioid, nicotine dependence comorbid MDD. Current Medications: Active Medications Generic Name Dose Route Start Last Admin Trade Name Freq PRN Reason Stop Dose Admin Acetaminophen 650 mg 02/12/17 14:12 Tylenol - PO Q4H PRN PAIN Al Hydroxide/Mg Hydroxide 30 ml 02/12/17 14:12 02/16/17 09:28 Mylanta Oral Suspension - PO 30 ml Q6H PRN Administration DYSPEPSIA Amlodipine Besylate 10 mg 02/13/17 10:00 02/21/17 09:53 Norvasc - PO 10 mg DAILY EDWINA Administration Carbamide Perox/Anhydrous Glycerin 10 drop 02/14/17 16:30 02/21/17 09:55 Debrox - AU 10 drop BID EDWINA Administration Docusate Sodium 300 mg 02/19/17 22:00 02/20/17 21:13 Colace - PO 300 mg HS EDWINA Administration Eucalyptus/Menthol/Phenol/Sorbitol 1 each 02/12/17 14:12 Cepastat Lozenge - MM Q4H PRN SORE THROAT Guaifenesin 10 ml 02/12/17 14:12 Robitussin Dm - PO Q6H PRN COUGH Hydroxyzine Pamoate 50 mg 02/21/17 11:08 Vistaril - PO Q4H PRN ANXIETY Ibuprofen 400 mg 02/12/17 14:12 02/21/17 09:55 Motrin - PO 400 mg Q6H PRN Administration SEVERE PAIN Loperamide HCl 4 mg 02/12/17 14:12 Imodium - PO Q6H PRN DIARRHEA Magnesium Citrate 300 ml 02/12/17 14:12 02/17/17 17:39 Citroma - PO 300 ml Q48H PRN Administration CONSTIPATION Magnesium Hydroxide 30 ml 02/12/17 14:12 02/16/17 16:36 Milk Of Magnesia - PO 30 ml DAILY PRN Administration CONSTIPATION Metformin HCl 1,000 mg 02/19/17 16:30 02/21/17 06:16 Glucophage - PO 1,000 mg BID@0700,1630 EDWINA Administration Methadone HCl 120 mg/ 140 mg 02/19/17 06:00 02/21/17 06:16 Methadone HCl 20 mg PO 02/26/17 05:59 140 mg DAILY@0600 EDWINA Administration Nicotine 14 mg 02/12/17 15:09 02/21/17 09:53 Nicoderm Patch - TD 14 mg DAILY EDWINA Administration Nicotine Polacrilex 2 mg 02/12/17 14:12 Nicorette Gum - BUC Q2H PRN NICOTINE REPLACEMENT RX Multivit/Folic Acid/Iron 1 tab 02/13/17 10:00 02/21/17 09:52 Vitamins (Sjr) - PO 1 tab DAILY EDWINA Administration Pseudoephedrine/Triprolidine 1 combo 02/12/17 14:12 Actifed - PO TID PRN NASAL CONGESTION Quetiapine Fumarate 200 mg 02/12/17 21:15 02/20/17 21:13 Seroquel - PO 200 mg HS EDWINA Administration Ranitidine HCl 150 mg 02/16/17 21:00 02/21/17 09:53 Zantac - PO 150 mg BID EDWINA Administration Senna 2 tab 02/19/17 22:00 02/20/17 21:13 Senna - PO 2 tab HS EDWINA Administration Sertraline HCl 50 mg 02/13/17 10:00 02/21/17 09:53 Zoloft - PO 50 mg DAILY EDWINA Administration Simethicone 80 mg 02/16/17 20:59 Mylicon - PO Q4H PRN GAS Thiamine HCl 100 mg 02/12/17 22:00 02/20/17 21:13 Vitamin B1 - PO 100 mg HS EDWINA Administration Tolnaftate 1 applic 02/16/17 22:00 02/21/17 09:56 Tinactin 1% Cream - TP 1 applic BID EDWINA Administration Medication(s) Change(s): vistaril 50 mg po q 4 hrs PRN Current Side Effect: No Lab tests ordered: No Lab tests reviewed: Yes Provider note:: Patient reports has been feeling very anxious, restless, "unpleasant feelings", states he is having difficult time during day to focus in groups, since anxiety destructs him .Reviewed his current medications, discussed indications and properties each of them ,will add Vistaril 50 mg po q 4 hrs prn, psychoeducation and supportive therapy provided. Total face to face time:: 25 Mental Status Exam - Mental Status Exam Alert and Oriented to: Time, Place, Person Cognitive Function: Grossly Intact Patient Appearance: Well Groomed Mood: Anxious Affect: Appropriate, Mood Congruent Patient Behavior: Appropriate, Cooperative Speech Pattern: Clear, Appropriate Voice Loudness: Normal Thought Process: Intact, Goal Oriented Thought Disorder: Not Present Hallucinations: Denies Suicidal Ideation: Denies Homicidal Ideation: Denies Insight/Judgement: Fair Sleep: Fair Appetite: Good Muscle strength/Tone: Normal Gait/Station: Normal Psychiatric Treatment Plan - Problem List (1) Methadone maintenance therapy patient Current Visit: Yes Comment: dose has been verified. (2) Nicotine dependence Current Visit: Yes Qualifiers: Nicotine product type: cigarettes Substance use status: in withdrawal Qualified Code(s): F17.213 - Nicotine dependence, cigarettes, with withdrawal (3) Opioid dependence on agonist therapy Current Visit: No (4) MDD (major depressive disorder) Current Visit: No
[2017-02-21] MEDS: hydrOXYzine PAMOATE 50 MG CAPSULE (FP) PO PRN ×3 (12:21→21:18)
[2017-02-21] MEDS: THIAMINE HCL 100 MG TABLET (FP) PO SCH (21:18)
[2017-02-21] MEDS: DOCUSATE SODIUM 100 MG CAPSULE (FP) PO SCH (21:18)
[2017-02-21] MEDS: SENNOSIDES 8.6MG TABLET (FP) PO SCH (21:19)
[2017-02-21] MEDS: QUEtiapine FUMARATE 200 MG TABLET PO SCH (21:19)
[2017-02-22] MEDS ORDERED: METHADONE HCL 10 MG TABLET ONE (03:05)
[2017-02-22] MEDS ORDERED: METHADONE HCL 40 MG DISPERSABLE TABLET ONE (03:06)
[2017-02-22] MEDS: metFORMIN HCL 500 MG TABLET (FP) PO SCH ×2 (06:08→16:52)
[2017-02-22] MEDS: METHADONE 120 MG, METHADONE 20 MG PO SCH (06:09)
[2017-02-22] MEDS: hydrOXYzine PAMOATE 50 MG CAPSULE (FP) PO PRN (08:31)
[2017-02-22] MEDS: PRENATAL VITAMINS W/ FOLIC ACID TABLET (FP) PO SCH (09:47)
[2017-02-22] MEDS: RANITIDINE HCL 150 MG TABLET (FP) PO SCH ×2 (09:48→21:15)
[2017-02-22] MEDS: amLODIPine BESYLATE 10 MG TABLET (FP) PO SCH (09:48)
[2017-02-22] MEDS: SERTRALINE HCL 50 MG TABLET (FP) PO SCH (09:48)
[2017-02-22] MEDS: NICOTINE 14 MG/24 HOURS TOPICAL PATCH TD SCH (09:48)
[2017-02-22] MEDS: TOLNAFTATE 1% CREAM 15 GM TUBE TP SCH ×2 (09:48→21:15)
[2017-02-22] MEDS: CARBAMIDE PEROXIDE 6.5% OTIC 15 ML BOTTLE AU SCH ×2 (09:49→21:15)
[2017-02-22] MEDS: THIAMINE HCL 100 MG TABLET (FP) PO SCH (21:15)
[2017-02-22] MEDS: DOCUSATE SODIUM 100 MG CAPSULE (FP) PO SCH (21:15)
[2017-02-22] MEDS: SENNOSIDES 8.6MG TABLET (FP) PO SCH (21:15)
[2017-02-22] MEDS: QUEtiapine FUMARATE 200 MG TABLET PO SCH (21:15)
[2017-02-23] MEDS ORDERED: METHADONE HCL 40 MG DISPERSABLE TABLET ONE (03:12)
[2017-02-23] MEDS ORDERED: METHADONE HCL 10 MG TABLET ONE (03:12)
[2017-02-23] MEDS: metFORMIN HCL 500 MG TABLET (FP) PO SCH ×2 (06:05→16:40)
[2017-02-23] MEDS: METHADONE 120 MG, METHADONE 20 MG PO SCH (06:05)
[2017-02-23] MEDS: amLODIPine BESYLATE 10 MG TABLET (FP) PO SCH (09:53)
[2017-02-23] MEDS: RANITIDINE HCL 150 MG TABLET (FP) PO SCH ×2 (09:53→21:02)
[2017-02-23] MEDS: PRENATAL VITAMINS W/ FOLIC ACID TABLET (FP) PO SCH (09:53)
[2017-02-23] MEDS: NICOTINE 14 MG/24 HOURS TOPICAL PATCH TD SCH (09:53)
[2017-02-23] MEDS: SERTRALINE HCL 50 MG TABLET (FP) PO SCH (09:53)
[2017-02-23] MEDS: hydrOXYzine PAMOATE 50 MG CAPSULE (FP) PO PRN ×3 (09:54→19:49)
[2017-02-23] MEDS: TOLNAFTATE 1% CREAM 15 GM TUBE TP SCH ×2 (09:54→21:03)
[2017-02-23] MEDS: CARBAMIDE PEROXIDE 6.5% OTIC 15 ML BOTTLE AU SCH ×2 (10:11→21:03)
[2017-02-23] MEDS: QUEtiapine FUMARATE 200 MG TABLET PO SCH (21:01)
[2017-02-23] MEDS: DOCUSATE SODIUM 100 MG CAPSULE (FP) PO SCH (21:01)
[2017-02-23] MEDS: SENNOSIDES 8.6MG TABLET (FP) PO SCH (21:01)
[2017-02-23] MEDS: THIAMINE HCL 100 MG TABLET (FP) PO SCH (21:02)
[2017-02-24] MEDS ORDERED: METHADONE HCL 40 MG DISPERSABLE TABLET ONE (06:11)
[2017-02-24] MEDS ORDERED: METHADONE HCL 10 MG TABLET ONE (06:11)
[2017-02-24] MEDS: METHADONE 120 MG, METHADONE 20 MG PO SCH (06:29)
[2017-02-24] MEDS: metFORMIN HCL 500 MG TABLET (FP) PO SCH ×2 (06:29→17:05)
[2017-02-24] MEDS: amLODIPine BESYLATE 10 MG TABLET (FP) PO SCH (10:09)
[2017-02-24] MEDS: SERTRALINE HCL 50 MG TABLET (FP) PO SCH (10:09)
[2017-02-24] MEDS: TOLNAFTATE 1% CREAM 15 GM TUBE TP SCH ×2 (10:09→21:35)
[2017-02-24] MEDS: RANITIDINE HCL 150 MG TABLET (FP) PO SCH ×2 (10:09→21:34)
[2017-02-24] MEDS: NICOTINE 14 MG/24 HOURS TOPICAL PATCH TD SCH (10:09)
[2017-02-24] MEDS: hydrOXYzine PAMOATE 50 MG CAPSULE (FP) PO PRN ×2 (10:09→14:06)
[2017-02-24] MEDS: PRENATAL VITAMINS W/ FOLIC ACID TABLET (FP) PO SCH (10:09)
[2017-02-24] MEDS: CARBAMIDE PEROXIDE 6.5% OTIC 15 ML BOTTLE AU SCH ×2 (10:10→21:35)
[2017-02-24] MEDS: MAGNESIUM CITRATE 300 ML BOTTLE PO PRN (17:39)
[2017-02-24] MEDS ORDERED: diphenhydrAMINE HCL 25 MG CAPSULE (FP) PO ONE (18:00)
--- NOTE | 2017-02-24 18:09 | PN ---
S Progress Note Note: anxiety,did not respond to vistaril,would like to try benadyl,benadryl 50 mgs po q 6 hrs prn for anxiety Vital Signs Temperature 97.3 F L 02/24/17 07:07 Pulse Rate 91 H 02/24/17 10:00 Respiratory Rate 18 02/24/17 10:00 Blood Pressure 127/72 02/24/17 10:00 O2 Sat by Pulse Oximetry (%) bp 138/84,p81,t97.4 anxious close monitoring psychiatric reevaluation
[2017-02-24] MEDS: SENNOSIDES 8.6MG TABLET (FP) PO SCH (21:34)
[2017-02-24] MEDS: THIAMINE HCL 100 MG TABLET (FP) PO SCH (21:34)
[2017-02-24] MEDS: QUEtiapine FUMARATE 200 MG TABLET PO SCH (21:34)
[2017-02-24] MEDS: DOCUSATE SODIUM 100 MG CAPSULE (FP) PO SCH (21:34)
[2017-02-25] MEDS ORDERED: METHADONE HCL 40 MG DISPERSABLE TABLET ONE (03:12)
[2017-02-25] MEDS ORDERED: METHADONE HCL 10 MG TABLET ONE (03:12)
[2017-02-25] MEDS: METHADONE 120 MG, METHADONE 20 MG PO SCH (06:35)
[2017-02-25] MEDS: SERTRALINE HCL 50 MG TABLET (FP) PO SCH (10:14)
[2017-02-25] MEDS: metFORMIN HCL 500 MG TABLET (FP) PO SCH ×2 (10:14→16:39)
[2017-02-25] MEDS: TOLNAFTATE 1% CREAM 15 GM TUBE TP SCH ×2 (10:14→21:26)
[2017-02-25] MEDS: PRENATAL VITAMINS W/ FOLIC ACID TABLET (FP) PO SCH (10:14)
[2017-02-25] MEDS: amLODIPine BESYLATE 10 MG TABLET (FP) PO SCH (10:14)
[2017-02-25] MEDS: RANITIDINE HCL 150 MG TABLET (FP) PO SCH ×2 (10:14→21:25)
[2017-02-25] MEDS: CARBAMIDE PEROXIDE 6.5% OTIC 15 ML BOTTLE AU SCH ×2 (10:16→21:26)
[2017-02-25] MEDS: NICOTINE 14 MG/24 HOURS TOPICAL PATCH TD SCH (10:16)
[2017-02-25] MEDS: diphenhydrAMINE HCL 25 MG CAPSULE (FP) PO PRN ×2 (10:21→16:50)
[2017-02-25] MEDS: MAGNESIUM HYDROX 2400MG/30ML ORAL SUSPENSION 30 ML CUP PO PRN (19:55)
[2017-02-25] MEDS: QUEtiapine FUMARATE 200 MG TABLET PO SCH (21:25)
[2017-02-25] MEDS: SENNOSIDES 8.6MG TABLET (FP) PO SCH (21:25)
[2017-02-25] MEDS: THIAMINE HCL 100 MG TABLET (FP) PO SCH (21:25)
[2017-02-25] MEDS: DOCUSATE SODIUM 100 MG CAPSULE (FP) PO SCH (21:25)
[2017-02-26] MEDS: diphenhydrAMINE HCL 25 MG CAPSULE (FP) PO PRN ×2 (00:38→13:02)
[2017-02-26] MEDS ORDERED: METHADONE HCL 10 MG TABLET ONE (05:00)
[2017-02-26] MEDS ORDERED: METHADONE HCL 40 MG DISPERSABLE TABLET ONE (05:01)
[2017-02-26] MEDS: METHADONE 120 MG, METHADONE 20 MG PO SCH (06:08)
[2017-02-26] MEDS: metFORMIN HCL 500 MG TABLET (FP) PO SCH ×2 (08:30→16:45)
[2017-02-26] MEDS: PRENATAL VITAMINS W/ FOLIC ACID TABLET (FP) PO SCH (09:59)
[2017-02-26] MEDS: RANITIDINE HCL 150 MG TABLET (FP) PO SCH ×2 (09:59→21:31)
[2017-02-26] MEDS: SERTRALINE HCL 50 MG TABLET (FP) PO SCH (09:59)
[2017-02-26] MEDS: NICOTINE 14 MG/24 HOURS TOPICAL PATCH TD SCH (10:00)
[2017-02-26] MEDS: TOLNAFTATE 1% CREAM 15 GM TUBE TP SCH ×2 (10:00→21:32)
[2017-02-26] MEDS: CARBAMIDE PEROXIDE 6.5% OTIC 15 ML BOTTLE AU SCH ×2 (10:00→21:32)
[2017-02-26] MEDS: amLODIPine BESYLATE 10 MG TABLET (FP) PO SCH (10:01)
--- NOTE | 2017-02-26 14:09 | PN ---
Psychiatric Progress Note Vital Signs: Vital Signs Period Temp Pulse Resp BP Sys/Freeman Pulse Ox Last 24 Hr 97.8 F 73-81 16-20 123-125/68-75 Date of Session: 02/26/17 Chief Complaint:: "mood swings" HPI: Patient is addressing opioid, nicotine dependence comorbid MDD. ROS: WNL Current Medications: Active Medications Generic Name Dose Route Start Last Admin Trade Name Freq PRN Reason Stop Dose Admin Acetaminophen 650 mg 02/12/17 14:12 Tylenol - PO Q4H PRN PAIN Al Hydroxide/Mg Hydroxide 30 ml 02/12/17 14:12 02/16/17 09:28 Mylanta Oral Suspension - PO 30 ml Q6H PRN Administration DYSPEPSIA Amlodipine Besylate 10 mg 02/13/17 10:00 02/26/17 10:01 Norvasc - PO 10 mg DAILY EDWINA Administration Carbamide Perox/Anhydrous Glycerin 10 drop 02/14/17 16:30 02/26/17 10:00 Debrox - AU 10 drop BID EDWINA Administration Diphenhydramine HCl 50 mg 02/24/17 18:01 02/26/17 13:02 Benadryl - PO 02/26/17 23:55 50 mg Q6H PRN Administration AGITATION Docusate Sodium 300 mg 02/19/17 22:00 02/25/17 21:25 Colace - PO 300 mg HS EDWINA Administration Eucalyptus/Menthol/Phenol/Sorbitol 1 each 02/12/17 14:12 Cepastat Lozenge - MM Q4H PRN SORE THROAT Guaifenesin 10 ml 02/12/17 14:12 Robitussin Dm - PO Q6H PRN COUGH Ibuprofen 400 mg 02/12/17 14:12 02/21/17 15:46 Motrin - PO 400 mg Q6H PRN Administration SEVERE PAIN Loperamide HCl 4 mg 02/12/17 14:12 Imodium - PO Q6H PRN DIARRHEA Magnesium Citrate 300 ml 02/12/17 14:12 02/24/17 17:39 Citroma - PO 300 ml Q48H PRN Administration CONSTIPATION Magnesium Hydroxide 30 ml 02/12/17 14:12 02/25/17 19:55 Milk Of Magnesia - PO 30 ml DAILY PRN Administration CONSTIPATION Metformin HCl 1,000 mg 02/19/17 16:30 02/26/17 08:30 Glucophage - PO 1,000 mg BID@0700,1630 EDWINA Administration Methadone HCl 120 mg/ 140 mg 02/26/17 06:00 02/26/17 06:08 Methadone HCl 20 mg PO 03/05/17 05:59 140 mg DAILY@0600 EDWINA Administration Nicotine 14 mg 02/12/17 15:09 02/26/17 10:00 Nicoderm Patch - TD 14 mg DAILY EDWINA Administration Nicotine Polacrilex 2 mg 02/12/17 14:12 Nicorette Gum - BUC Q2H PRN NICOTINE REPLACEMENT RX Multivit/Folic Acid/Iron 1 tab 02/13/17 10:00 02/26/17 09:59 Vitamins (Sjr) - PO 1 tab DAILY EDWINA Administration Pseudoephedrine/Triprolidine 1 combo 02/12/17 14:12 Actifed - PO TID PRN NASAL CONGESTION Quetiapine Fumarate 200 mg 02/12/17 21:15 02/25/17 21:25 Seroquel - PO 200 mg HS EDWINA Administration Quetiapine Fumarate 25 mg 02/26/17 14:07 Seroquel - PO Q4H PRN AGITATION Ranitidine HCl 150 mg 02/16/17 21:00 02/26/17 09:59 Zantac - PO 150 mg BID EDWINA Administration Senna 2 tab 02/19/17 22:00 02/25/17 21:25 Senna - PO 2 tab HS EDWINA Administration Sertraline HCl 50 mg 02/13/17 10:00 02/26/17 09:59 Zoloft - PO 50 mg DAILY EDWINA Administration Simethicone 80 mg 02/16/17 20:59 Mylicon - PO Q4H PRN GAS Thiamine HCl 100 mg 02/12/17 22:00 02/25/17 21:25 Vitamin B1 - PO 100 mg HS EDWINA Administration Tolnaftate 1 applic 02/16/17 22:00 02/26/17 10:00 Tinactin 1% Cream - TP Not Given BID [facility] Medication(s) Change(s): add Seroquel 225 mg po q 4 hrs Current Side Effect: No Lab tests ordered: No Lab tests reviewed: Yes Provider note:: Patient reports has been feeling anxious and "locked in", having mood swings, reviewed current medications with the patient will add seroquel PRN, continue to monitor progress. Total face to face time:: 15 Mental Status Exam - Mental Status Exam Alert and Oriented to: Time, Place, Person Cognitive Function: Good Patient Appearance: Well Groomed Mood: Sad, Anxious Affect: Mood Congruent Patient Behavior: Appropriate, Cooperative Speech Pattern: Clear, Appropriate Voice Loudness: Normal Thought Process: Intact, Goal Oriented Thought Disorder: Not Present Hallucinations: Denies Suicidal Ideation: Denies Homicidal Ideation: Denies Insight/Judgement: Fair Sleep: Fair Appetite: Fair Muscle strength/Tone: Normal Gait/Station: Normal Psychiatric Treatment Plan - Problem List (1) Methadone maintenance therapy patient Current Visit: Yes Comment: dose has been verified. (2) Nicotine dependence Current Visit: Yes Qualifiers: Nicotine product type: cigarettes Substance use status: in withdrawal Qualified Code(s): F17.213 - Nicotine dependence, cigarettes, with withdrawal (3) Opioid dependence on agonist therapy Current Visit: No (4) MDD (major depressive disorder) Current Visit: No
[2017-02-26] MEDS: QUEtiapine FUMARATE 25 MG TABLET (FP) PO PRN ×2 (14:30→20:06)
[2017-02-26] MEDS: SENNOSIDES 8.6MG TABLET (FP) PO SCH (21:31)
[2017-02-26] MEDS: QUEtiapine FUMARATE 200 MG TABLET PO SCH (21:31)
[2017-02-26] MEDS: DOCUSATE SODIUM 100 MG CAPSULE (FP) PO SCH (21:31)
[2017-02-26] MEDS: THIAMINE HCL 100 MG TABLET (FP) PO SCH (22:05)
[2017-02-27] MEDS ORDERED: METHADONE HCL 10 MG TABLET ONE (05:06)
[2017-02-27] MEDS ORDERED: METHADONE HCL 40 MG DISPERSABLE TABLET ONE (05:07)
[2017-02-27] MEDS: METHADONE 120 MG, METHADONE 20 MG PO SCH (06:21)
[2017-02-27] MEDS: metFORMIN HCL 500 MG TABLET (FP) PO SCH ×2 (06:21→17:01)
[2017-02-27] MEDS: RANITIDINE HCL 150 MG TABLET (FP) PO SCH ×2 (09:57→21:27)
[2017-02-27] MEDS: TOLNAFTATE 1% CREAM 15 GM TUBE TP SCH ×2 (09:57→21:27)
[2017-02-27] MEDS: PRENATAL VITAMINS W/ FOLIC ACID TABLET (FP) PO SCH (09:57)
[2017-02-27] MEDS: SERTRALINE HCL 50 MG TABLET (FP) PO SCH (09:57)
[2017-02-27] MEDS: amLODIPine BESYLATE 10 MG TABLET (FP) PO SCH (09:57)
[2017-02-27] MEDS: NICOTINE 14 MG/24 HOURS TOPICAL PATCH TD SCH (09:57)
[2017-02-27] MEDS: CARBAMIDE PEROXIDE 6.5% OTIC 15 ML BOTTLE AU SCH ×2 (09:57→21:27)
[2017-02-27] MEDS: QUEtiapine FUMARATE 25 MG TABLET (FP) PO PRN ×3 (09:58→20:02)
[2017-02-27] MEDS: THIAMINE HCL 100 MG TABLET (FP) PO SCH (21:27)
[2017-02-27] MEDS: QUEtiapine FUMARATE 200 MG TABLET PO SCH (21:27)
[2017-02-27] MEDS: DOCUSATE SODIUM 100 MG CAPSULE (FP) PO SCH (21:27)
[2017-02-27] MEDS: SENNOSIDES 8.6MG TABLET (FP) PO SCH (21:27)
[2017-02-28] MEDS ORDERED: METHADONE HCL 40 MG DISPERSABLE TABLET ONE (03:05)
[2017-02-28] MEDS ORDERED: METHADONE HCL 10 MG TABLET ONE (03:05)
[2017-02-28] MEDS: metFORMIN HCL 500 MG TABLET (FP) PO SCH ×2 (06:08→16:43)
[2017-02-28] MEDS: METHADONE 120 MG, METHADONE 20 MG PO SCH (06:09)
[2017-02-28] MEDS: CARBAMIDE PEROXIDE 6.5% OTIC 15 ML BOTTLE AU SCH ×2 (09:49→21:25)
[2017-02-28] MEDS: NICOTINE 14 MG/24 HOURS TOPICAL PATCH TD SCH (09:49)
[2017-02-28] MEDS: PRENATAL VITAMINS W/ FOLIC ACID TABLET (FP) PO SCH (09:51)
[2017-02-28] MEDS: RANITIDINE HCL 150 MG TABLET (FP) PO SCH ×2 (09:51→21:24)
[2017-02-28] MEDS: QUEtiapine FUMARATE 25 MG TABLET (FP) PO PRN ×3 (09:51→18:14)
[2017-02-28] MEDS: TOLNAFTATE 1% CREAM 15 GM TUBE TP SCH ×2 (09:51→21:25)
[2017-02-28] MEDS: amLODIPine BESYLATE 10 MG TABLET (FP) PO SCH (09:51)
[2017-02-28] MEDS: SERTRALINE HCL 50 MG TABLET (FP) PO SCH (09:51)
[2017-02-28] MEDS: IBUPROFEN 400 MG TABLET (FP) PO PRN (12:03)
[2017-02-28] MEDS: QUEtiapine FUMARATE 200 MG TABLET PO SCH (21:24)
[2017-02-28] MEDS: DOCUSATE SODIUM 100 MG CAPSULE (FP) PO SCH (21:24)
[2017-02-28] MEDS: SENNOSIDES 8.6MG TABLET (FP) PO SCH (21:24)
[2017-02-28] MEDS: THIAMINE HCL 100 MG TABLET (FP) PO SCH (21:25)
[2017-03-01] MEDS ORDERED: METHADONE HCL 40 MG DISPERSABLE TABLET ONE (03:10)
[2017-03-01] MEDS ORDERED: METHADONE HCL 10 MG TABLET ONE (03:10)
[2017-03-01] MEDS: metFORMIN HCL 500 MG TABLET (FP) PO SCH ×2 (06:06→16:38)
[2017-03-01] MEDS: METHADONE 120 MG, METHADONE 20 MG PO SCH (06:06)
[2017-03-01] MEDS: CARBAMIDE PEROXIDE 6.5% OTIC 15 ML BOTTLE AU SCH ×2 (10:02→21:27)
[2017-03-01] MEDS: RANITIDINE HCL 150 MG TABLET (FP) PO SCH ×2 (10:02→21:26)
[2017-03-01] MEDS: TOLNAFTATE 1% CREAM 15 GM TUBE TP SCH ×2 (10:02→21:27)
[2017-03-01] MEDS: amLODIPine BESYLATE 10 MG TABLET (FP) PO SCH (10:02)
[2017-03-01] MEDS: HYDROCORTISONE 0.5% TOPICAL OINTMENT TUBE TP PRN (10:02)
[2017-03-01] MEDS: PRENATAL VITAMINS W/ FOLIC ACID TABLET (FP) PO SCH (10:03)
[2017-03-01] MEDS: SERTRALINE HCL 50 MG TABLET (FP) PO SCH (10:03)
[2017-03-01] MEDS: QUEtiapine FUMARATE 25 MG TABLET (FP) PO PRN ×3 (10:04→19:45)
[2017-03-01] MEDS: NICOTINE 14 MG/24 HOURS TOPICAL PATCH TD SCH (10:05)
[2017-03-01] MEDS: IBUPROFEN 400 MG TABLET (FP) PO PRN (13:17)
[2017-03-01] MEDS: THIAMINE HCL 100 MG TABLET (FP) PO SCH (21:26)
[2017-03-01] MEDS: DOCUSATE SODIUM 100 MG CAPSULE (FP) PO SCH (21:26)
[2017-03-01] MEDS: QUEtiapine FUMARATE 200 MG TABLET PO SCH (21:26)
[2017-03-01] MEDS: SENNOSIDES 8.6MG TABLET (FP) PO SCH (21:26)
[2017-03-02] MEDS ORDERED: METHADONE HCL 10 MG TABLET ONE (03:39)
[2017-03-02] MEDS ORDERED: METHADONE HCL 40 MG DISPERSABLE TABLET ONE (03:39)
[2017-03-02] MEDS: METHADONE 120 MG, METHADONE 20 MG PO SCH (06:03)
[2017-03-02] MEDS: metFORMIN HCL 500 MG TABLET (FP) PO SCH ×2 (06:03→16:59)
[2017-03-02] MEDS: PRENATAL VITAMINS W/ FOLIC ACID TABLET (FP) PO SCH (09:51)
[2017-03-02] MEDS: RANITIDINE HCL 150 MG TABLET (FP) PO SCH ×2 (09:51→21:17)
[2017-03-02] MEDS: SERTRALINE HCL 50 MG TABLET (FP) PO SCH (09:51)
[2017-03-02] MEDS: CARBAMIDE PEROXIDE 6.5% OTIC 15 ML BOTTLE AU SCH ×2 (09:52→21:18)
[2017-03-02] MEDS: amLODIPine BESYLATE 10 MG TABLET (FP) PO SCH (09:52)
[2017-03-02] MEDS: NICOTINE 14 MG/24 HOURS TOPICAL PATCH TD SCH (09:52)
[2017-03-02] MEDS: TOLNAFTATE 1% CREAM 15 GM TUBE TP SCH ×2 (09:52→21:18)
[2017-03-02] MEDS: HYDROCORTISONE 0.5% TOPICAL OINTMENT TUBE TP PRN (09:53)
[2017-03-02] MEDS: QUEtiapine FUMARATE 25 MG TABLET (FP) PO PRN ×3 (09:54→19:19)
[2017-03-02] MEDS: IBUPROFEN 400 MG TABLET (FP) PO PRN ×2 (12:19→19:19)
[2017-03-02] MEDS: QUEtiapine FUMARATE 200 MG TABLET PO SCH (21:17)
[2017-03-02] MEDS: DOCUSATE SODIUM 100 MG CAPSULE (FP) PO SCH (21:17)
[2017-03-02] MEDS: THIAMINE HCL 100 MG TABLET (FP) PO SCH (21:17)
[2017-03-02] MEDS: SENNOSIDES 8.6MG TABLET (FP) PO SCH (21:17)
[2017-03-03] MEDS ORDERED: METHADONE HCL 10 MG TABLET ONE (05:07)
[2017-03-03] MEDS ORDERED: METHADONE HCL 40 MG DISPERSABLE TABLET ONE (05:08)
[2017-03-03] MEDS: metFORMIN HCL 500 MG TABLET (FP) PO SCH ×2 (06:17→16:37)
[2017-03-03] MEDS: METHADONE 120 MG, METHADONE 20 MG PO SCH (06:18)
[2017-03-03] MEDS: SERTRALINE HCL 50 MG TABLET (FP) PO SCH (09:50)
[2017-03-03] MEDS: amLODIPine BESYLATE 10 MG TABLET (FP) PO SCH (09:50)
[2017-03-03] MEDS: NICOTINE 14 MG/24 HOURS TOPICAL PATCH TD SCH (09:50)
[2017-03-03] MEDS: RANITIDINE HCL 150 MG TABLET (FP) PO SCH ×2 (09:50→21:21)
[2017-03-03] MEDS: PRENATAL VITAMINS W/ FOLIC ACID TABLET (FP) PO SCH (09:50)
[2017-03-03] MEDS: TOLNAFTATE 1% CREAM 15 GM TUBE TP SCH ×2 (09:51→21:23)
[2017-03-03] MEDS: CARBAMIDE PEROXIDE 6.5% OTIC 15 ML BOTTLE AU SCH ×2 (09:52→21:22)
[2017-03-03] MEDS: QUEtiapine FUMARATE 25 MG TABLET (FP) PO PRN ×2 (10:58→15:39)
[2017-03-03] MEDS: IBUPROFEN 400 MG TABLET (FP) PO PRN (10:58)
[2017-03-03] MEDS: DOCUSATE SODIUM 100 MG CAPSULE (FP) PO SCH (21:21)
[2017-03-03] MEDS: THIAMINE HCL 100 MG TABLET (FP) PO SCH (21:21)
[2017-03-03] MEDS: QUEtiapine FUMARATE 200 MG TABLET PO SCH (21:21)
[2017-03-03] MEDS: SENNOSIDES 8.6MG TABLET (FP) PO SCH (21:21)
[2017-03-03] MEDS: HYDROCORTISONE 0.5% TOPICAL OINTMENT TUBE TP PRN (21:24)
[2017-03-04] MEDS ORDERED: METHADONE HCL 10 MG TABLET ONE (04:18)
[2017-03-04] MEDS ORDERED: METHADONE HCL 40 MG DISPERSABLE TABLET ONE (04:19)
[2017-03-04] MEDS: METHADONE 120 MG, METHADONE 20 MG PO SCH (06:09)
[2017-03-04] MEDS: metFORMIN HCL 500 MG TABLET (FP) PO SCH ×2 (08:22→16:45)
[2017-03-04] MEDS: IBUPROFEN 400 MG TABLET (FP) PO PRN (08:24)
[2017-03-04] MEDS: QUEtiapine FUMARATE 25 MG TABLET (FP) PO PRN ×2 (08:24→15:33)
[2017-03-04] MEDS: NICOTINE 14 MG/24 HOURS TOPICAL PATCH TD SCH (10:15)
[2017-03-04] MEDS: RANITIDINE HCL 150 MG TABLET (FP) PO SCH ×2 (10:15→21:20)
[2017-03-04] MEDS: SERTRALINE HCL 50 MG TABLET (FP) PO SCH (10:15)
[2017-03-04] MEDS: PRENATAL VITAMINS W/ FOLIC ACID TABLET (FP) PO SCH (10:15)
[2017-03-04] MEDS: amLODIPine BESYLATE 10 MG TABLET (FP) PO SCH (10:15)
[2017-03-04] MEDS: TOLNAFTATE 1% CREAM 15 GM TUBE TP SCH ×2 (10:16→21:22)
[2017-03-04] MEDS: CARBAMIDE PEROXIDE 6.5% OTIC 15 ML BOTTLE AU SCH ×2 (10:16→21:21)
[2017-03-04] MEDS: SENNOSIDES 8.6MG TABLET (FP) PO SCH (21:20)
[2017-03-04] MEDS: DOCUSATE SODIUM 100 MG CAPSULE (FP) PO SCH (21:20)
[2017-03-04] MEDS: THIAMINE HCL 100 MG TABLET (FP) PO SCH (21:20)
[2017-03-04] MEDS: QUEtiapine FUMARATE 200 MG TABLET PO SCH (21:20)
[2017-03-05] MEDS ORDERED: METHADONE 120 MG, METHADONE 20 MG PO SCH (06:00)
[2017-03-05] MEDS ORDERED: METHADONE HCL 40 MG DISPERSABLE TABLET ONE (06:08)
[2017-03-05] MEDS ORDERED: METHADONE HCL 10 MG TABLET ONE (06:08)
[2017-03-05 06:53] VITALS: TEMP 97.6
[2017-03-05] MEDS: metFORMIN HCL 500 MG TABLET (FP) PO SCH (08:22)
--- NOTE | 2017-03-05 09:55 | PN ---
Psychiatric Progress Note Vital Signs: Vital Signs Period Temp Pulse Resp BP Sys/Freeman Pulse Ox Last 24 Hr 97.6 F 79-97 18-18 122-127/72-86 Date of Session: 03/05/17 Chief Complaint:: discharge visit HPI: Patient is addressing opioid, nicotine dependence comorbid MDD. ROS: HTN medically managed. Current Medications: Active Medications Generic Name Dose Route Start Last Admin Trade Name Freq PRN Reason Stop Dose Admin Acetaminophen 650 mg 02/12/17 14:12 Tylenol - PO Q4H PRN PAIN Al Hydroxide/Mg Hydroxide 30 ml 02/12/17 14:12 02/16/17 09:28 Mylanta Oral Suspension - PO 30 ml Q6H PRN Administration DYSPEPSIA Amlodipine Besylate 10 mg 02/13/17 10:00 03/04/17 10:15 Norvasc - PO 10 mg DAILY EDWINA Administration Carbamide Perox/Anhydrous Glycerin 10 drop 02/14/17 16:30 03/04/17 21:21 Debrox - AU Not Given BID EDWINA Docusate Sodium 300 mg 02/19/17 22:00 03/04/17 21:20 Colace - PO 300 mg HS EDWINA Administration Eucalyptus/Menthol/Phenol/Sorbitol 1 each 02/12/17 14:12 Cepastat Lozenge - MM Q4H PRN SORE THROAT Guaifenesin 10 ml 02/12/17 14:12 Robitussin Dm - PO Q6H PRN COUGH Hydrocortisone 1 applic 02/28/17 10:47 03/03/17 21:24 Hytone 0.5% Ointment - TP 1 applic DAILY PRN Administration FOR ITCHING Ibuprofen 400 mg 02/12/17 14:12 03/04/17 08:24 Motrin - PO 400 mg Q6H PRN Administration SEVERE PAIN Loperamide HCl 4 mg 02/12/17 14:12 Imodium - PO Q6H PRN DIARRHEA Magnesium Citrate 300 ml 02/12/17 14:12 02/24/17 17:39 Citroma - PO 300 ml Q48H PRN Administration CONSTIPATION Magnesium Hydroxide 30 ml 02/12/17 14:12 02/25/17 19:55 Milk Of Magnesia - PO 30 ml DAILY PRN Administration CONSTIPATION Metformin HCl 1,000 mg 02/19/17 16:30 03/05/17 08:22 Glucophage - PO 1,000 mg BID@0700,1630 EDWINA Administration Methadone HCl 120 mg/ 140 mg 03/05/17 06:00 03/05/17 06:08 Methadone HCl 20 mg PO 03/12/17 05:59 140 mg DAILY@0600 EDWINA Administration Nicotine 14 mg 02/12/17 15:09 03/04/17 10:15 Nicoderm Patch - TD 14 mg DAILY EDWINA Administration Nicotine Polacrilex 2 mg 02/12/17 14:12 Nicorette Gum - BUC Q2H PRN NICOTINE REPLACEMENT RX Multivit/Folic Acid/Iron 1 tab 02/13/17 10:00 03/04/17 10:15 Vitamins (Sjr) - PO 1 tab DAILY EDWINA Administration Pseudoephedrine/Triprolidine 1 combo 02/12/17 14:12 Actifed - PO TID PRN NASAL CONGESTION Quetiapine Fumarate 200 mg 02/12/17 21:15 03/04/17 21:20 Seroquel - PO 200 mg HS EDWINA Administration Quetiapine Fumarate 25 mg 02/26/17 14:07 03/04/17 15:33 Seroquel - PO 25 mg Q4H PRN Administration AGITATION Ranitidine HCl 150 mg 02/16/17 21:00 03/04/17 21:20 Zantac - PO 150 mg BID EDWINA Administration Senna 2 tab 02/19/17 22:00 03/04/17 21:20 Senna - PO 2 tab HS EDWINA Administration Sertraline HCl 50 mg 02/13/17 10:00 03/04/17 10:15 Zoloft - PO 50 mg DAILY EDWINA Administration Simethicone 80 mg 02/16/17 20:59 Mylicon - PO Q4H PRN GAS Thiamine HCl 100 mg 02/12/17 22:00 03/04/17 21:20 Vitamin B1 - PO 100 mg HS EDWINA Administration Tolnaftate 1 applic 02/16/17 22:00 03/04/17 21:22 Tinactin 1% Cream - TP Not Given BID EDWINA Current Side Effect: No Lab tests ordered: No Lab tests reviewed: Yes Provider note:: Patient has completed today his treatmen and met his goals, will continue to address his issues at [facility]. He focused on importance of changing attitudes for the utilization of supports to prevent relapses. Patient continuing finding that Seroquel effective, scripts provided for 30 days, patient was encouraged to take medications as directed and to f/u with his medical appointments, patient will f/u with his psychaitrist at [facility], he is stable for discharge today. Total face to face time:: 30 Mental Status Exam - Mental Status Exam Alert and Oriented to: Time, Place, Person Cognitive Function: Good Patient Appearance: Well Groomed Mood: Hopeful Affect: Appropriate, Mood Congruent Patient Behavior: Appropriate, Cooperative Speech Pattern: Clear, Appropriate Voice Loudness: Normal Thought Process: Intact Thought Disorder: Not Present Hallucinations: Denies Suicidal Ideation: Denies Homicidal Ideation: Denies Insight/Judgement: Fair Sleep: Fair Appetite: Fair Muscle strength/Tone: Normal Gait/Station: Normal Psychiatric Treatment Plan - Problem List (1) Methadone maintenance therapy patient Current Visit: Yes Comment: dose has been verified. (2) Nicotine dependence Current Visit: Yes Qualifiers: Nicotine product type: cigarettes Substance use status: in withdrawal Qualified Code(s): F17.213 - Nicotine dependence, cigarettes, with withdrawal (3) Opioid dependence on agonist therapy Current Visit: No (4) MDD (major depressive disorder) Current Visit: No
[2017-03-05] MEDS: PRENATAL VITAMINS W/ FOLIC ACID TABLET (FP) PO SCH (10:04)
[2017-03-05] MEDS: RANITIDINE HCL 150 MG TABLET (FP) PO SCH (10:04)
[2017-03-05] MEDS: SERTRALINE HCL 50 MG TABLET (FP) PO SCH (10:04)
[2017-03-05] MEDS: NICOTINE 14 MG/24 HOURS TOPICAL PATCH TD SCH (10:05)
[2017-03-05] MEDS: TOLNAFTATE 1% CREAM 15 GM TUBE TP SCH (10:05)
[2017-03-05] MEDS: CARBAMIDE PEROXIDE 6.5% OTIC 15 ML BOTTLE AU SCH (10:05)
[2017-03-05] MEDS: amLODIPine BESYLATE 10 MG TABLET (FP) PO SCH (10:06)
[2017-03-05 11:18] VITALS: BP 120/70; PULSE 80
== END 2017-03-05 10:50 | disposition home or self-care (01) | DRG 772 ==
LOC: YASAS 11:12 → Y5N 15:04
PROVIDERS: ADMIT Psychiatry & Neurology Psychiatry; ATTEND Psychiatry & Neurology Psychiatry
PROC: HZ42ZZZ Group Counseling for Substance Abuse Treatment, Cognitive-Behavioral (ICD-10-PCS; principal; 2017-02-12)
DX: F11.20 Opioid dependence, uncomplicated (principal); F17.210 Nicotine dependence, cigarettes, uncomplicated; F33.9 Major depressive disorder, recurrent, unspecified; I10 Essential (primary) hypertension
CPT/HCPCS: 36415; 81003; 82947; 83036